=== PATIENT | female | born 1990 | race Caucasian/White ===

== ENCOUNTER 2018-01-27 09:48 | Emergency (ER) | payer BC ==
[2018-01-27] MEDS ORDERED: METOCLOPRAMIDE HCL INJ/PF 10 MG/2 ML SDV IV ONE (09:59)
[2018-01-27] MEDS ORDERED: DIPHENHYDRAMINE HCL 50 MG/ML VIAL IV ONE (09:59)
--- NOTE | 2018-01-27 10:13 | ER Document Report ---
ED Medical Screen (RME) - General Chief Complaint: Nausea/Vomiting Stated Complaint: VOMTING Time Seen by Provider: 01/27/18 09:56 TRAVEL OUTSIDE OF THE [place] IN LAST 30 DAYS: No - HPI Notes: 01/27/18 10:13 Patient is approximate 12 weeks [facility] significant nausea vomiting ongoing patient states since the beginning of the . Patient is on no medications. Denies any vaginal bleeding or abdominal pain. - Related Data Allergies/Adverse Reactions: No Known Allergies Allergy (Unverified 01/27/18 09:51) Past Medical History - Social History Chew tobacco use (# tins/day): No Frequency of alcohol use: None Drug Abuse: None Renal/ Medical History: Denies: Hx Peritoneal Dialysis Review of Systems - Review of Systems Gastrointestinal: Nausea, Vomiting Physical Exam - Vital signs Vitals: Temp Pulse Resp BP Pulse Ox 98.3 F 139 H 18 126/95 H 100 01/27/18 09:51 01/27/18 09:51 01/27/18 09:51 01/27/18 09:51 01/27/18 09:51 - Respiratory Respiratory status: No respiratory distress Chest status: Nontender Breath sounds: Normal Chest palpation: Normal - Cardiovascular Rhythm: Regular, Tachycardia Course - Vital Signs Vital signs: Temp Pulse Resp BP Pulse Ox 98.3 F 139 H 18 126/95 H 100 01/27/18 09:51 01/27/18 09:51 01/27/18 09:51 01/27/18 09:51 01/27/18 09:51
[2018-01-27] MEDS: RINGERS SOLUTION,LACTATED 1,000 ML IV PRN ×2 (10:19→11:39)
[2018-01-27 10:26] LABS: ABSOLUTE LYMPHOCYTES (AUTO) 1.1 10^3/uL (0.5-4.7); ABSOLUTE MONOCYTES (AUTO) 0.2 10^3/uL (0.1-1.4); ABSOLUTE NEUT (AUTO) 10.6 10^3/uL (1.7-8.2); BASOPHILS % (AUTO) 0.2 % (0-2); EOSINOPHILS % (AUTO) 0.3 % (0-6); HEMATOCRIT 42.5 % (36.0-47.0); MEAN CORPUSCULAR HEMOGLOBIN 29.6 pg (27.0-33.4); MEAN CORPUSCULAR HGB CONC 35.3 g/dL (32.0-36.0); MEAN CORPUSCULAR VOLUME 84 fl (80-97); MONOCYTES % (AUTO) 1.9 % (3-13); PLATELET COUNT 321 10^3/uL (150-450); RED BLOOD COUNT 5.06 10^6/uL (3.72-5.28); RED CELL DISTRIBUTION WIDTH 13.4 % (11.5-14.0); SEGMENTED NEUTROPHILS % (AUTO) 88.6 % (42-78); TOTAL CELLS COUNTED % (AUTO) 100 %
[2018-01-27 10:44] LABS: APPEARANCE,URINE CLOUDY; BILIRUBIN,URINE NEGATIVE (NEGATIVE); CALCIUM OXALATE CRYSTALS,URINE FEW /HPF; GLUCOSE, URINE NEGATIVE (NEGATIVE); KETONES,URINE 20 mg/dL (NEGATIVE); LEUKOCYTE ESTERASE,URINE NEGATIVE (NEGATIVE); NITRITE,URINE NEGATIVE (NEGATIVE); PROTEIN,URINE 30 mg/dL (NEGATIVE); URINE SPECIFIC GRAVITY 1.025
[2018-01-27 10:48] LABS: COLOR,URINE YELLOW
--- NOTE | 2018-01-27 10:50 | ER Document Report ---
ED General - General Mode of Arrival: Ambulatory Information source: Patient TRAVEL OUTSIDE OF THE [place] IN LAST 30 DAYS: No <LIBAN PERSON - Last Filed: 01/27/18 16:04> <GERALD SANDOVAL - Last Filed: 01/27/18 16:05> - General Chief Complaint: Nausea/Vomiting Stated Complaint: VOMTING Time Seen by Provider: 01/27/18 09:56 Notes: Patient 27 year old female presenting to the emergency department complaining of nausea and vomiting onset this morning around 0200. Patient states that she woke up around this time and began to vomit and has been vomiting every 30 minutes. She also states she generally feels weak and complains of a headache. Patient states she had similar symptoms in her last throughout her entire . Patient states she was prescribed Diclegis but has been unable to fill it due to it being too expensive. Patient denies hematemesis, diarrhea, constipation, or vaginal bleeding. Patient is A0. Patient states her last child was delivered premature at 34 weeks further stating she had no other complications. Patient is currently taking vitamins. (LIBAN PERSON) - Related Data Allergies/Adverse Reactions: No Known Allergies Allergy (Verified 01/27/18 10:31) Past Medical History - General Information source: Patient - Social History Smoking Status: Never Smoker Chew tobacco use (# tins/day): No Frequency of alcohol use: None Drug Abuse: None Family History: Reviewed & Not Pertinent Patient has suicidal ideation: No Patient has homicidal ideation: No <LIBAN PERSON - Last Filed: 01/27/18 16:04> Review of Systems - Review of Systems Constitutional: No symptoms reported EENT: No symptoms reported Cardiovascular: No symptoms reported Respiratory: No symptoms reported Gastrointestinal: See HPI, Nausea, Vomiting Genitourinary: No symptoms reported Female Genitourinary: See HPI, Musculoskeletal: No symptoms reported Skin: No symptoms reported Hematologic/Lymphatic: No symptoms reported Neurological/Psychological: No symptoms reported -: Yes All other systems reviewed and negative <LIBAN PERSON - Last Filed: 01/27/18 16:04> Physical Exam <LIBAN PERSON - Last Filed: 01/27/18 16:04> <GERALD SANDOVAL - Last Filed: 01/27/18 16:05> - Vital signs Vitals: Temp Pulse Resp BP Pulse Ox 98.3 F 139 H 18 126/95 H 100 01/27/18 09:51 01/27/18 09:51 01/27/18 09:51 01/27/18 09:51 01/27/18 09:51 - Notes Notes: GENERAL: Alert, interacts well, shaking like she has chills. HEAD: Normocephalic, atraumatic. EYES: Pupils equal, round, and reactive to light. Extraocular movements intact. ENT: Oral mucosa moist, tongue midline. NECK: Full range of motion. Supple. Trachea midline. LUNGS: Clear to auscultation bilaterally, no wheezes, rales, or rhonchi. No respiratory distress. HEART: Tachycardic. No murmurs, gallops, or rubs. ABDOMEN: Soft, non-tender. Non-distended. Bowel sounds present in all 4 quadrants. EXTREMITIES: Moves all 4 extremities spontaneously. NEUROLOGICAL: Alert and oriented x3. Normal speech. PSYCH: Normal affect, normal mood. SKIN: Warm, dry, normal turgor. No rashes or lesions noted. (LIBAN PERSON) Course - Laboratory Result Diagrams: 01/27/18 10:00 01/27/18 10:00 <LIBAN PERSON - Last Filed: 01/27/18 16:04> - Laboratory Result Diagrams: 01/27/18 10:00 01/27/18 10:00 <GERALD SANDOVAL - Last Filed: 01/27/18 16:05> - Re-evaluation Re-evalutation: 01/27/18 13:02 CBC shows slight leukocytosis of 12.0, consistent with and vomiting, CMP shows slight low CO2 at 20, no renal failure, lipase is normal, urinalysis shows ketones but no signs of infection. Patient has not been having any vaginal bleeding or abdominal pain. Patient states that this vomiting and headache are consistent with her vomiting and headaches with her last . After Reglan, Benadryl and 2 L of fluid she feels completely better and would like to go home. Patient will be discharged to home with a prescription for likely just as well as a prescription for Reglan. (GERALD SANDOVAL ) - Vital Signs Vital signs: Temp Pulse Resp BP Pulse Ox 98.8 F 102 H 16 106/65 98 01/27/18 13:40 01/27/18 13:40 01/27/18 13:40 01/27/18 13:40 01/27/18 13:40 - Laboratory Laboratory results interpreted by me: 01/27/18 01/27/18 01/27/18 10:00 10:00 10:00 WBC 12.0 H Seg Neutrophils % 88.6 H Lymphocytes % 9.0 L Monocytes % 1.9 L Absolute Neutrophils 10.6 H Carbon Dioxide 20 L Creatinine 0.51 L Glucose 125 H Beta HCG, Quant 21870.00 H Urine Protein 30 H Urine Ketones 20 H Urine Urobilinogen 2.0 H Urine Ascorbic Acid 40 H Discharge <LIBAN PERSON - Last Filed: 01/27/18 16:04> <GERALD SANDOVAL - Last Filed: 01/27/18 16:05> - Discharge Clinical Impression: Nausea and vomiting during prior to 22 weeks gestation Condition: Stable Disposition: HOME, SELF-CARE Prescriptions: Doxylamine Succinate/Vit B6 [Sherine Henderson 10-10 mg Tablet] 2 each PO QHS #30 tablet. Metoclopramide HCl [Reglan 10 mg Tablet] 10 mg PO Q6HP PRN #30 tablet PRN Reason: Referrals: JASKARAN PHAM MD [ACTIVE STAFF] - Follow up as needed Scribe Attestation: 01/27/18 16:05 I personally performed the services described in the documentation, reviewed and edited the documentation which was dictated to the scribe in my presence, and it accurately records my words and actions. (GERALD SANDOVAL)
[2018-01-27 11:03] LABS: ALANINE AMINOTRANSFERASE 15 U/L (9-52); ALBUMIN 4.7 g/dL (3.5-5.0); ALKALINE PHOSPHATASE 55 U/L (38-126); ANION GAP 18 (5-19); ASPARTATE AMINO TRANSFERASE 27 U/L (14-36); BILIRUBIN,DIRECT 0.2 mg/dL (0.0-0.4); BILIRUBIN,TOTAL 0.9 mg/dL (0.2-1.3); BLOOD UREA NITROGEN 10 mg/dL (7-20); CALCIUM 9.6 mg/dL (8.4-10.2); CARBON DIOXIDE 20 mmol/L (22-30); CHLORIDE 103 mmol/L (98-107); GLUCOSE 125 mg/dL (75-110); LIPASE 116.2 U/L (23-300); POTASSIUM 4.3 mmol/L (3.6-5.0)
[2018-01-27 13:44] VITALS: BP 106/65
== END 2018-01-27 13:45 | disposition home or self-care (01) ==
LOC: ER 09:48
DX: O21.9 Vomiting of pregnancy, unspecified (principal); R53.1 Weakness; R51 Headache; Z3A.00 Weeks of gestation of pregnancy not specified
CPT/HCPCS: 99284; 96361; 96374; 96375; 86900; 86901; 36415; 84702; 83690; 85025; 80053; 81001; J1200; J2765; J7120